=== PATIENT | female | born 1985 | race African-American/Black ===

== ENCOUNTER 2019-06-06 12:15 | Outpatient (CLI) | payer OTHER | END 2019-06-06 15:45 | disposition home or self-care (01) | LOC: OBT 12:15 → L-D 12:16 → OBT 15:45 | DX: O36.8130 Decreased fetal movements, third trimester, not applicable or unspecified (principal); Z3A.39 39 weeks gestation of pregnancy | CPT/HCPCS: 76818 ==

== ENCOUNTER 2019-06-09 17:00 | Inpatient (IN) | payer OTHER ==
[2019-06-09] MEDS ORDERED: LACTATED RINGER'S 1,000 ML IV (17:43)
[2019-06-09] MEDS ORDERED: MISOPROSTOL 200 MCG TAB PR ×2 (18:00)
[2019-06-09] MEDS ORDERED: CARBOPROST 250 MCG INJ IM ×2 (18:00)
[2019-06-09] MEDS ORDERED: MISOPROSTOL 50 MCG CAPSULE VAG (18:00)
[2019-06-09] MEDS ORDERED: LIDOCAINE 1% (MPF) 30 ML INJ INJ ×2 (18:00)
[2019-06-09] MEDS ORDERED: OXYTOCIN 30 UNITS/LR 500 ML IV ×6 (18:00)
[2019-06-09] MEDS ORDERED: METHYLERGONOVINE 0.2 MG INJ IM ×2 (18:00)
[2019-06-09 18:06] LABS: ADD MAN DIFF? NO
[2019-06-09 18:11] LABS: WHITE BLOOD COUNT 5.4 10^3/ul (4.8-10.8)
[2019-06-09 18:11] LABS: BASOPHILS % 0.2 % (0.0-2.0); EOSINOPHILS # 0.1 10^3/ul (0.0-0.5); EOSINOPHILS % 0.9 % (0.0-7.0); HEMATOCRIT 35.9 % (37.0-47.0); HEMOGLOBIN 11.5 g/dl (12.0-16.0); LYMPHOCYTES # 1.2 10^3/ul (0.8-2.9); LYMPHOCYTES % 22.4 % (15.0-51.0); MEAN CORPUSCULAR HEMOGLOBIN 27.3 pg (29.0-33.0); MEAN CORPUSCULAR VOLUME 85.3 fl (82.0-101.0); MEAN PLATELET VOLUME 10.9 fl (7.4-10.4); MONOCYTE # 0.7 10^3/ul (0.3-0.9); MONOCYTES % 13.2 % (0.0-11.0); NEUTROPHIL # 3.4 10^3/ul (1.6-7.5); NEUTROPHILS % 62.9 % (39.0-77.0); PLATELET COUNT 155 10^3/UL (140-415); RED BLOOD COUNT 4.21 10^6/ul (4.20-5.40); RED CELL DISTRIBUTION WIDTH 15.9 % (11.5-14.5)
[2019-06-09] MEDS: LACTATED RINGER'S 1,000 ML IV (18:26)
[2019-06-09 18:29] LABS: INR 0.94; PROTIME 12.7 Sec (11.9-14.9)
[2019-06-09] MEDS: MISOPROSTOL 50 MCG CAPSULE PO ×2 (18:41→23:12)
[2019-06-09 19:53] LABS: RAPID PLASMA REAGIN NONREACTIVE (NR)
[2019-06-09] MEDS ORDERED: BUTORPHANOL 2 MG INJ IV ×2 (22:30)
[2019-06-10] MEDS: LACTATED RINGER'S 1,000 ML IV ×4 (00:27→21:52)
[2019-06-10] MEDS: MISOPROSTOL 50 MCG CAPSULE PO (05:13)
[2019-06-10] MEDS ORDERED: FENTAnyl 2MCG/ML-ROPIV 0.2% 100 ML (06:41)
[2019-06-10] MEDS ORDERED: NALOXONE (0.4 MG/ML) INJ IV ×2 (07:00→13:30)
[2019-06-10] MEDS ORDERED: FENTAnyl 2MCG/ML-ROPIV 0.2% 100 ML BAG EPI (07:00)
[2019-06-10] MEDS ORDERED: NALBUPHINE HCL (10 MG/1 ML) INJ IV (07:00)
[2019-06-10] MEDS: OXYTOCIN 30 UNITS/LR 500 ML IV ×2 (08:36→14:20)
[2019-06-10] MEDS ORDERED: CEFAZOLIN 2 GM/50 ML (PMX) 50 ML IVPB ×2 (11:46→12:00)
[2019-06-10] MEDS: ONDANSETRON 4 MG INJ IV ×2 (11:49→20:10)
[2019-06-10] MEDS ORDERED: morphine SULFATE/PF (10 MG/10 ML) INJ (12:09)
[2019-06-10] MEDS ORDERED: OXYTOCIN 10 UNIT INJ ×2 (12:11→12:17)
[2019-06-10] MEDS ORDERED: OXYTOCIN 30 UNITS/LR 500 ML IV ×2 (12:12→13:30)
[2019-06-10] MEDS ORDERED: PHENYLephrine 10 MG INJ (12:18)
[2019-06-10 12:26] LABS: AADO2 Cord Arterial 77.5 mmHg; Arterial Cord Blood pCO2 46.9 mmHG (25-50); CBA Base Excess -6.5 mmol/L; CBA COHb 0.2 %; CBA Total Hemglobin 13.8 g/dl; Cord Blood Arterial pO2 16.1 mmHG (15.0-45.0); Fraction OxyHgb Cord Arterial 22.5 %; MODE ROOM AIR; MetHgb Cord Arterial 1.8 %; Sample Type CBA; Site CORD
[2019-06-10 12:28] LABS: CBV Base Excess -5.1 mmol/L; CBV COHb 0.9 %; CBV Oxygen Sat 56.7 mmHG; CBV Total Hemglobin 14.1 g/dl; Cord Blood Venous AADO2 75.3 mmHg; Cord Blood Venous pO2 24.6 mmHG (15.0-45.0); Fraction OxyHgb Cord Venous 55.6 %; MODE ROOM AIR; MetHgb Cord Venous 1.1 %; Sample Type CBV; Site CORD
[2019-06-10] MEDS ORDERED: MEPERIDINE 100 MG INJ (12:37)
[2019-06-10] MEDS ORDERED: morphine 2 MG INJ IV (13:30)
[2019-06-10] MEDS ORDERED: ONDANSETRON 4 MG INJ IV (13:30)
[2019-06-10] MEDS ORDERED: NACL 0.9% 3 ML SYG IV (13:30)
[2019-06-10] MEDS ORDERED: METHYLERGONOVINE 0.2 MG INJ IM (13:30)
[2019-06-10] MEDS ORDERED: NA PHOSPHATE/BIPHOS 133 ML ENEMA PR (13:30)
[2019-06-10] MEDS ORDERED: LANOLIN HPA 1 PKT TOP (13:30)
[2019-06-10] MEDS ORDERED: MISOPROSTOL 200 MCG TAB PR (13:30)
[2019-06-10] MEDS ORDERED: DIPHENHYDRAMINE 50 MG INJ IV (13:30)
[2019-06-10] MEDS ORDERED: CARBOPROST 250 MCG INJ IM (13:30)
[2019-06-10 14:11] LABS: ADD MAN DIFF? NO
[2019-06-10 14:14] LABS: WHITE BLOOD COUNT 16.5 10^3/ul (4.8-10.8)
[2019-06-10 14:14] LABS: BASOPHILS % 0.1 % (0.0-2.0); HEMATOCRIT 33.9 % (37.0-47.0); HEMOGLOBIN 10.8 g/dl (12.0-16.0); LYMPHOCYTES # 0.9 10^3/ul (0.8-2.9); LYMPHOCYTES % 5.4 % (15.0-51.0); MEAN CORPUSCULAR HEMOGLOBIN 27.6 pg (29.0-33.0); MEAN CORPUSCULAR HGB CONC 31.9 g/dl (32.0-37.0); MEAN CORPUSCULAR VOLUME 86.7 fl (82.0-101.0); MEAN PLATELET VOLUME 10.4 fl (7.4-10.4); MONOCYTE # 1.3 10^3/ul (0.3-0.9); MONOCYTES % 7.9 % (0.0-11.0); NEUTROPHIL # 14.1 10^3/ul (1.6-7.5); NEUTROPHILS % 85.7 % (39.0-77.0); PLATELET COUNT 152 10^3/UL (140-415); RED BLOOD COUNT 3.91 10^6/ul (4.20-5.40); RED CELL DISTRIBUTION WIDTH 15.9 % (11.5-14.5)
[2019-06-10] MEDS: KETOROLAC 30 MG INJ IV (14:24)
[2019-06-10 14:33] LABS: INR 1.01; PROTIME 13.4 Sec (11.9-14.9)
[2019-06-10 14:34] LABS: ALANINE AMINOTRANSFERASE 19 IU/L (13-69); ALBUMIN 2.8 g/dl (3.3-4.9); ALBUMIN/GLOBULIN RATIO 1.03; ALKALINE PHOSPHATASE 124 IU/L (42-121); ANION GAP 5 (5-13); ASPARTATE AMINO TRANSFERASE 24 IU/L (15-46); BILIRUBIN,INDIRECT 0.5 mg/dl (0-1.1); BILIRUBIN,TOTAL 0.5 mg/dl (0.2-1.3); BLOOD UREA NITROGEN 7 mg/dl (7-20); CARBON DIOXIDE 24 mmol/L (21-31); CHLORIDE 106 mmol/L (97-110); Estimated GFR > 60 mL/min (>60); GLUCOSE 102 mg/dl (70-220); PARTIAL THROMBOPLASTIN TIME 27.1 Sec (23.0-35.0); POTASSIUM 4.5 mmol/L (3.5-5.1); SODIUM 135 mmol/L (135-144); TOTAL PROTEIN 5.5 g/dl (6.1-8.1)
[2019-06-11] MEDS: LACTATED RINGER'S 1,000 ML IV ×3 (05:44→17:53)
[2019-06-11] MEDS: KETOROLAC 30 MG INJ IV (07:15)
[2019-06-11 07:26] LABS: ADD MAN DIFF? NO
[2019-06-11 07:49] LABS: BASOPHILS % 0.1 % (0.0-2.0); EOSINOPHILS % 0.2 % (0.0-7.0); HEMATOCRIT 22.9 % (37.0-47.0); HEMOGLOBIN 7.4 g/dl (12.0-16.0); LYMPHOCYTES # 1.2 10^3/ul (0.8-2.9); LYMPHOCYTES % 10.1 % (15.0-51.0); MEAN CORPUSCULAR HEMOGLOBIN 28.2 pg (29.0-33.0); MEAN CORPUSCULAR HGB CONC 32.3 g/dl (32.0-37.0); MEAN CORPUSCULAR VOLUME 87.4 fl (82.0-101.0); MEAN PLATELET VOLUME 10.6 fl (7.4-10.4); MONOCYTES % 8.3 % (0.0-11.0); NEUTROPHIL # 9.8 10^3/ul (1.6-7.5); NEUTROPHILS % 80.6 % (39.0-77.0); PLATELET COUNT 125 10^3/UL (140-415); RED BLOOD COUNT 2.62 10^6/ul (4.20-5.40)
[2019-06-11 07:49] LABS: WHITE BLOOD COUNT 12.1 10^3/ul (4.8-10.8)
[2019-06-11 11:04] LABS: CREATININE,URINE RANDOM 85.72 mg/dl (20-320); PROTEIN/CREAT RATIO 0.22 RATIO
[2019-06-11] MEDS: IBUPROFEN 600 MG TAB PO (15:03)
[2019-06-11] MEDS ORDERED: OXYCODONE/ACETAMINOPHEN (5/325) TAB PO ×2 (19:30)
[2019-06-11] MEDS: IBUPROFEN 800 MG TAB PO (19:30)
[2019-06-12] MEDS: IBUPROFEN 800 MG TAB PO ×5 (00:13→23:27)
[2019-06-12 12:30] LABS: ADD MAN DIFF? NO
[2019-06-12] MEDS: CYANOCOBALAMIN 1000 MCG INJ IM (12:30)
[2019-06-12 12:33] LABS: WHITE BLOOD COUNT 7.7 10^3/ul (4.8-10.8)
[2019-06-12 12:33] LABS: ABNORMAL IP MESSAGE 1; BASOPHILS % 0.3 % (0.0-2.0); EOSINOPHILS # 0.1 10^3/ul (0.0-0.5); EOSINOPHILS % 0.7 % (0.0-7.0); LYMPHOCYTES # 1.1 10^3/ul (0.8-2.9); LYMPHOCYTES % 14.2 % (15.0-51.0); MEAN CORPUSCULAR HEMOGLOBIN 27.3 pg (29.0-33.0); MEAN CORPUSCULAR HGB CONC 30.9 g/dl (32.0-37.0); MEAN CORPUSCULAR VOLUME 88.4 fl (82.0-101.0); MEAN PLATELET VOLUME 10.7 fl (7.4-10.4); MONOCYTE # 0.8 10^3/ul (0.3-0.9); MONOCYTES % 9.8 % (0.0-11.0); NEUTROPHIL # 5.7 10^3/ul (1.6-7.5); NEUTROPHILS % 74.5 % (39.0-77.0); PLATELET COUNT 123 10^3/UL (140-415); RED BLOOD COUNT 2.49 10^6/ul (4.20-5.40); RED CELL DISTRIBUTION WIDTH 16.6 % (11.5-14.5)
[2019-06-12 12:36] LABS: POSITIVE DIFF @See below
[2019-06-12 12:37] LABS: HEMOGLOBIN 6.8 g/dl (12.0-16.0); PATH REVIEW? YES
[2019-06-12 13:20] LABS: ANISOCYTOSIS 1+ (0-0); LYMPHOCYTES #M 1.4 10^3/ul (0.8-2.9); LYMPHOCYTES % (M) 19 % (15-51); MICROCYTOSIS 1+ (0-0); MONOCYTE #M 0.3 10^3/ul (0.3-0.9); MONOCYTES % (M) 4 % (0-11); PLATELET ESTIMATE DECREASED; POIKILOCYTOSIS 1+ (0-0); SEGMENTED NEUTROPHILS (M) % 77 % (39-77); SMUDGE%M 2 % (0-0)
[2019-06-12 13:58] LABS: IRON 17 ug/dl (35-150)
[2019-06-12 14:07] LABS: % IRON SATURATION 6 % SAT (22-52); TOTAL IRON BINDING CAPACITY 309 ug/dl (241-421)
[2019-06-12 14:36] LABS: FERRITIN 25.9 ng/ml (6.2-137.0)
[2019-06-12] MEDS: ASCORBIC ACID 500 MG TAB PO (20:40)
[2019-06-12] MEDS: FERROUS SULFATE (EC) 325 MG TAB PO (20:40)
[2019-06-13] MEDS: IBUPROFEN 800 MG TAB PO ×2 (05:48→12:34)
[2019-06-13] MEDS: DIPHTH/TET/ACEL PERTUSS (ADULT) 0.5 ML VIAL IM* (09:00)
[2019-06-13] MEDS: MEASLES,MUMPS,RUBELLA VACCINE INJ SC* (09:00)
[2019-06-13] MEDS: ASCORBIC ACID 500 MG TAB PO ×2 (10:06→12:34)
[2019-06-13] MEDS: FERROUS SULFATE (EC) 325 MG TAB PO ×2 (10:06→12:34)
== END 2019-06-13 13:25 | disposition home or self-care (01) | DRG 787 ==
LOC: L-D 06-10 11:52 → PP1 06-10 15:11
PROVIDERS: Obstetrics & Gynecology
PROC: 10D00Z1 Extraction of Products of Conception, Low, Open Approach (ICD-10-PCS; principal; 2019-06-10 12:00)
DX: O99.02 Anemia complicating childbirth (principal); D62 Acute posthemorrhagic anemia; O66.9 Obstructed labor, unspecified; Z3A.39 39 weeks gestation of pregnancy; Z37.0 Single live birth
CPT/HCPCS: 36415; 36600; 62322; 80053; 81003; 82570; 82728; 82803; 83540; 85025; 85335; 85610; 85730; 86592; 86850; 86900; 86901; 86920; 99464